=== PATIENT | female | born 1955 | race African-American/Black ===

== ENCOUNTER 2019-01-13 10:33 | Emergency (ER) | payer OTHER ==
[~2019-01-13] VITALS: Ht 170.2 cm; Wt 77.1 kg
[~2019-01-13 10:33] MED LIST: ATORVASTATIN CA10 MG ORAL; IBUPROFEN600 MG PO; NORCO 5-325 TA1 EACH ORAL; NORCO 5-325 TA1 EACH PO; PROTONIX40 MG PO; ROBAXIN-750750 MG PO; VIBRAMYCIN100 MG ORAL; metoprolol; temazepam
--- NOTE | 2019-01-13 10:50 | NUR ---
ED Nurse Note: Pt came in from home due to skin rash, suspects to be insect bites. Pt went to a friend's house on Sunday night and symptom started. Redness with pain rash on L shoulder, upper back. Pain 8/10 peg. AOx4, BP 175/94 at arrival, pt did not take BP medication this morning, ERMD aware. Will cont to monitor.
[2019-01-13] MEDS ORDERED: AUGMENTIN 875-1 EAC1 ORAL (10:51)
[2019-01-13] MEDS ORDERED: TYLENOL EXTRA500 MG ORAL (10:51)
[2019-01-13 10:54] VITALS: BP 170/85
--- NOTE | 2019-01-13 10:54 | NUR ---
ER DISCHARGE NOTE: Patient is cleared to be discharged per ERMD, pt is aox4, on room air, with stable vital signs. pt was given dc and prescription instructions, pt was able to verbalize understanding, pt id band removed . pt is able to ambulate with steady gait. pt took all belongings.
--- NOTE | 2019-01-13 11:37 | Emergency Room Report ---
History of Present Illness General Chief Complaint: Skin Rash/Abscess Source: Patient Present Illness HPI 63-year-old female presents ED for evaluation. Complaining of pain redness and swelling to her left shoulder. States that she was staying at a friend's house this weekend and noticed multiple "bug bites" all over her arms and most notably on her left shoulder. States it is red and swollen. Pain is throbbing , 6 out of 10, nonradiating. Denies fevers or chills. Denies any discharge. Notes full range of motion. No other aggravating relieving factors. Denies any other associated symptoms Allergies: Coded Allergies: No Known Allergies (Unverified , 09/25/12) Patient History Past Medical History: DM, HTN, asthma Past Surgical History: none Pertinent Family History: none Social History: Denies: smoking, alcohol use, drug use Now: No Immunizations: UTD Reviewed Nursing Documentation: PMH: Agreed; PSxH: Agreed Nursing Documentation-PMH Past Medical History: No History, Except For Hx Hypertension: Yes Hx Asthma: Yes Hx Diabetes: Yes Review of Systems All Other Systems: negative except mentioned in HPI Physical Exam Vital Signs Date Time Temp Pulse Resp B/P (MAP) Pulse Ox O2 Delivery O2 Flow Rate FiO2 01/13/19 10:43 99.3 86 16 175/94 (121) 96 Room Air Sp02 EP Interpretation: reviewed, normal General Appearance: no apparent distress, alert, GCS 15, non-toxic Head: normocephalic Eyes: bilateral eye normal inspection, bilateral eye PERRL ENT: normal ENT inspection Neck: normal inspection Respiratory: normal inspection Cardiovascular #1: normal inspection Gastrointestinal: non tender Rectal: deferred Genitourinary: no CVA tenderness Musculoskeletal: normal range of motion, tender - L shoulder Neurologic: alert, oriented x3, responsive, motor strength/tone normal, sensory intact, speech normal Psychiatric: normal inspection Skin: other - 4cm circular area of erythema/induration L shoulder Lymphatic: normal inspection Medical Decision Making Diagnostic Impression: Primary Impression: Cellulitis of shoulder ER Course Hospital Course 63-year-old female presents to ED with redness, swelling to L shoulder Differential diagnoses include: Cellulitis, dermatitis, insect bite, abscess Clinical course Patient placed on stretcher. After initial history, physical exam reveals an elderly female in no acute distress. On exam there is a site for mild erythema and induration over the L shoulder. There is no fluctuance. There is no tenderness. Full range of motion is noted Discussed findings with patient. I do not suspect septic joint as patient is not in distress and is able to range the shoulder without difficulty. afebrile. stable vitals. I suspect overlying cellulitis secondary to insect bite. Will discharge with antibiotics and pain meds. Warm compresses. Safe for discharge close outpatient follow-up. States she has a PMD Diagnosis - cellulitis of shoulder stable and discharged to home with prescription for augmentin, tylenol. Instructed to followup with PMD. Instructed return to ED if symptoms recur or worsen Last Vital Signs Date Time Temp Pulse Resp B/P (MAP) Pulse Ox O2 Delivery O2 Flow Rate FiO2 01/13/19 10:54 99.3 87 19 170/85 97 Room Air Status: improved Disposition: HOME, SELF-CARE Condition: Stable Scripts Amoxicillin/Potassium Clav 875-125* (AUGMENTIN 875-125 TABLET*) 1 Each Tablet 1 TAB ORAL TWICE A DAY, #14 TAB Prov: Hugo Tinoco MD 01/13/19 Acetaminophen* (TYLENOL EXTRA STRENGTH*) 500 Mg Tablet 500 MG ORAL Q8H PRN for Prn Headache/Temp > 101, #30 TAB 0 Refills Prov: Hugo Tinoco MD 01/13/19 Patient Instructions: Cellulitis, [id number] Hugo Tinoco MD Jan 13, 2019 11:37
== END 2019-01-13 10:54 | disposition home or self-care (01) ==
LOC: EMR 10:50
DX: L03.114 Cellulitis of left upper limb (principal); E11.9 Type 2 diabetes mellitus without complications; I10 Essential (primary) hypertension
CPT/HCPCS: 99282